=== PATIENT | male | born 1960 | race Caucasian/White ===

== ENCOUNTER 2016-10-11 14:20 | Emergency (ER) | payer OTHER ==
[~2016-10-11 14:20] MED LIST: ALLOPURINOL100 MG PO; CHILDRENS CHEWA81 MG PO; CHLORDIAZEPOXID25 MG PO; HYDROCODON-ACE1 EAC6 PO; LEVAQUIN750 MG PO; LOPRESSOR50 MG PO; LOVASTATIN40 MG PO; MEDROL4 M1 PO; NEURONTIN800 MG PO; NITROQUICK0.4 MG SL; PANTOPRAZOLE SO40 MG PO; ROBITUSSIN100 MG/5 M PO; SYNTHROID125 MCG PO; TRICOR145 MG PO; XOPENEX0.63 MG/3 INH; ZANAFLEX4 MG PO
[2016-10-11 14:55] LABS: ARTERIAL BLD GAS O2 SATURATION 95.6 % (94-98); ARTERIAL BLOOD GAS BASE EXCESS -15.6 mmol/L (-2.0-3.0)
[2016-10-11 14:59] LABS: ARTERIAL BLOOD GAS pH 7.17 (7.35-7.45)
[2016-10-11 15:02] LABS: BASO % 0.5 % (0.2-1.2); EOS # 0.2 10_X3_uL (0.0-0.5); EOS % 2.6 % (0.8-7.0); GRAN # 5.1 10_X3_uL (1.8-5.4); GRAN % 82.5 % (34.0-67.9); HEMATOCRIT 43.7 % (40-51); LYMPH # 0.7 10_X3_uL (1.3-3.6); LYMPH % 11.3 % (21.8-53.1); MEAN CORPUSCULAR HEMOGLOBIN 32.8 pg (27.0-33.0); MEAN CORPUSCULAR HGB CONC 34.3 g/dL (32.0-36.0); MEAN CORPUSCULAR VOLUME 95.4 fL (79-92); MEAN PLATELET VOLUME 12.2 fl (7.5-11.5); MONO # 0.2 10_X3_uL (0.3-0.8); MONO % 3.1 % (5.3-12.2); PLATELET COUNT 245 x10_3/uL (163-337); RED BLOOD COUNT 4.58 x10_6/uL (4.6-6.1); RED CELL DISTRIBUTION WIDTH 13.5 % (11.6-14.4); WHITE BLOOD COUNT 6.2 x10_3/uL (4.2-9.1)
[2016-10-11 15:13] LABS: INR 1.3 (0.9-1.1); PARTIAL THROMBOPLASTIN TIME 31.4 SECONDS (21.3-29.3)
[2016-10-11 15:14] LABS: ALBUMIN 3.4 gm/dL (3.4-5.0); BILIRUBIN,TOTAL 0.69 mg/dL (0.0-1.0); CALCIUM 8.5 mg/dL (8.7-10.7); CREATININE 7.7 mg/dL (0.6-1.3); TOTAL PROTEIN 7.8 gm/dL (6.4-8.2)
== END 2016-10-11 16:55 | disposition short-term general hospital (02) ==
LOC: ER 14:20
PROVIDERS: Internal Medicine
DX: J96.00 Acute respiratory failure, unspecified whether with hypoxia or hypercapnia (principal); N17.9 Acute kidney failure, unspecified; R23.0 Cyanosis; R00.0 Tachycardia, unspecified; R19.7 Diarrhea, unspecified; R50.9 Fever, unspecified; J44.9 Chronic obstructive pulmonary disease, unspecified; I10 Essential (primary) hypertension; F17.210 Nicotine dependence, cigarettes, uncomplicated; Z79.891 Long term (current) use of opiate analgesic
CPT/HCPCS: 31500; 36415; 36600; 51702; 71010; 80053; 82550; 82553; 82803; 83605; 83690; 83880; 85025; 85610; 85730; 87040; 87400; 92950; 93005; 94002; 94660; 94664; 94770; 96365; 96367; 96368; 96375; 99070; 99285-25; J2543; J2704; J3370; J7050